=== PATIENT | female | born 1965 | race Caucasian/White ===

== ENCOUNTER 2017-05-15 22:23 | Observation (INO) ==
--- NOTE | 2017-05-15 22:56 | Emergency Department Note ---
Disposition Clinical Impression: Chest pain Qualifiers: Chest pain type: unspecified Qualified Code(s): R07.9 - Chest pain, unspecified Disposition: Admitted As Inpatient Condition: Good Reasons to Return/Additional Instructions: Please call your enroute controller morning to set up appointment. You may also call your primary care physician for checkup. Please return sooner for any new or worsening pain. Referrals: Corina Regan MD [Primary Care Provider] - Forms: ED Satisfaction Letter Time of Disposition: 05:40 Chest Pain HPI - General Chief Complaint: ED Chest Pain Stated Complaint: CP/LIGHTHEADED Time Seen by Provider: 05/15/17 22:55 Source: patient Mode of arrival: ambulatory Limitations: no limitations Vital Signs Reviewed: Yes Nursing Notes Reviewed: Yes - History of Present Illness HPI Narrative: Patient presents to the ED with the chief complaint of chest discomfort and feeling lightheaded. Patient reports that she had a nuclear medicine stress test today. She had that done this afternoon and at around 6 PM this evening she started developing a funny feeling in her chest. She describes it as retrosternal, but higher than the xiphoid. She denies any pain in particular but states this is a pressure like feeling. Never had pain like this before. States that similar to the pain she is having for the past several weeks which prompted the visit to have the stress test. She did have some nausea, no vomiting. No fever or chills. States that she felt kind of lightheaded like she was going to pass out. No change in vision. No shortness of breath above baseline. She does state she feels like she needs to take a deep breath a lot and actually sighs a lot. States that she also felt kind of anxious. Severity scale (1-10): 0 - Related Data Allergies Allergy/AdvReac Type Severity Reaction Status Date / Time No Known Allergies Allergy Verified 05/15/17 22:26 All systems ED: reviewed and negative except as stated. Cardiovascular: Reports: chest pain, dyspnea on exertion, syncope (near) Gastrointestinal: Reports: nausea Neurological: Reports: headache (resolved with motrin ), other (Lightheaded) Chest Pain PMH - Past Medical History Medical history: Reports: no medical history Psychiatric history: Reports: no psych history - Social History Smoking Status: Never smoker Alcohol use: Reports: none Drug use: Reports: none Physical Exam - General Limitations: no limitations General appearance: alert, in no apparent distress - Head Head exam: atraumatic, normocephalic, normal inspection - Eye Eye exam: Present: normal appearance, PERRL, EOMI - ENT ENT exam: normal exam, normal oropharynx, mucous membranes moist - Neck Neck exam: Present: normal inspection, full ROM, trachea midline - Chest Chest inspection: Present: normal inspection, symmetric chest wall rise - Respiratory Respiratory exam: Present: normal lung sounds bilaterally - Cardiovascular Cardiovascular exam: Present: regular rate, normal rhythm, normal heart sounds - Abdominal Exam Abdominal exam: Present: soft, Non-Tender. Absent: tenderness, distention, guarding, rebound, rigidity - Extremities Exam Extremities exam: Present: normal inspection, full ROM. Absent: tenderness, pedal edema - Neurological Exam Neurological exam: Present: alert, oriented X3 - Psychiatric Psychiatric exam: Present: normal affect, normal mood - Skin Skin exam: Present: warm, dry, intact, normal color Course Course Narrative: 52-year-old female presenting with chest pain and feeling lightheaded after stress test today. She looks comfortable. Seems slightly anxious. We will check labs and added on a d-dimer due to her change dyspnea. She is not hypoxic. Slightly tachycardic. Disposition pending - Reevaluation(s) Reevaluation #1: Lab work is back and is unremarkable. EKG shows sinus rhythm, rate 80, OR interval 178, QRS 99, QTC 416, normal axis, no acute ischemic changes. The patient's heart score is 3. She gets 1 point for her age and 2 points for risk factors. I do think she is safe for discharge home at this time. Patient agreeable with plan. Will follow enroute controller in the morning. Reevaluation #2: After discussion with the patient, she felt more comfortable staying for repeat troponin. We will order this 2 hours from initial draw, which would be 4 hours total from symptom onset. We will discharge at that time. Reevaluation #3: patient still concerned over symptoms. Will admit. Is having angina type symptoms and without results from full stress and continued intermittent pain, i think it would be better to admit the patient for r/o Vital Signs Temperature 98 F 05/15/17 22:26 Pulse Rate 80 05/15/17 22:26 Respiratory Rate 16 05/15/17 22:26 Blood Pressure 176/100 05/15/17 22:26 O2 Sat by Pulse Oximetry 96 05/15/17 22:26 Temperature 98 F 05/15/17 22:26 Pulse Rate 80 05/16/17 00:51 Respiratory Rate 20 05/16/17 00:51 Blood Pressure 134/83 05/16/17 00:51 O2 Sat by Pulse Oximetry 94 05/16/17 00:51 Oxygen Delivery Oxygen Delivery Room Air Chest Pain - Medical Records Medical records reviewed: Yes I reviewed the patient's medical records. - Lab Data Lab results reviewed: Yes I reviewed the patient's lab results. Result diagrams: 05/15/17 23:28 05/15/17 23:28 Lab Results 05/15/17 05/15/17 05/15/17 Range/Units 23:28 23:28 23:28 WBC 6.7 (4.3-11.1) K/mcL RBC 4.95 (3.82-4.97) M/mcL Hgb 14.5 (11.5-15.4) g/dL Hct 42.8 (35.3-44.9) % MCV 86.5 (83.0-100.0) fL MCH 29.3 (28.0-33.3) pg MCHC 33.9 (31.6-35.5) g/dL RDW 13.2 (11.5-14.5) % Plt Count 234 (140-400) K/mcL MPV 10.8 (9.4-12.4) fL Immature Gran % 0.3 (0-4) % Seg Neutrophils % 59.1 % Lymphocytes % 32.0 % Monocytes % 6.0 % Eosinophils % 2.1 % Basophils % 0.5 % Neutrophils # 3.9 (1.6-8.9) K/mcL Lymphocytes # 2.1 (0.6-4.6) K/mcL Monocytes # 0.4 (0.0-1.3) K/mcL Eosinophils # 0.1 (0.0-0.6) K/mcL Basophils # 0.0 (0.0-0.2) K/mcL PT 11.3 (9.4-12.1) Seconds INR 1.0 APTT 34.0 (26.0-36.0) Seconds D-Dimer 432 (0-500) ng/mLFEU Sodium (136-145) mEq/L Potassium (3.5-4.5) mEq/L Chloride (98-109) mEq/L Carbon Dioxide (19-29) mEq/L BUN (7-20) mg/dL Creatinine (0.57-1.11) mg/dL Est GFR ( Amer) (> 60) Est GFR (Non-Af Amer) (> 60) BUN/Creatinine Ratio (6-26) Glucose (70-99) mg/dL Calculated Osmolality (280-300) Calcium (8.6-10.8) mg/dL Troponin I (0-0.03) ng/mL B-Natriuretic Peptide 22 (0-100) pg/mL 05/15/17 05/15/17 Range/Units 23:28 23:28 WBC (4.3-11.1) K/mcL RBC (3.82-4.97) M/mcL Hgb (11.5-15.4) g/dL Hct (35.3-44.9) % MCV (83.0-100.0) fL MCH (28.0-33.3) pg MCHC (31.6-35.5) g/dL RDW (11.5-14.5) % Plt Count (140-400) K/mcL MPV (9.4-12.4) fL Immature Gran % (0-4) % Seg Neutrophils % % Lymphocytes % % Monocytes % % Eosinophils % % Basophils % % Neutrophils # (1.6-8.9) K/mcL Lymphocytes # (0.6-4.6) K/mcL Monocytes # (0.0-1.3) K/mcL Eosinophils # (0.0-0.6) K/mcL Basophils # (0.0-0.2) K/mcL PT (9.4-12.1) Seconds INR APTT (26.0-36.0) Seconds D-Dimer (0-500) ng/mLFEU Sodium 138 (136-145) mEq/L Potassium 3.5 (3.5-4.5) mEq/L Chloride 104 (98-109) mEq/L Carbon Dioxide 24 (19-29) mEq/L BUN 24 H (7-20) mg/dL Creatinine 0.82 (0.57-1.11) mg/dL Est GFR ( Amer) > 60 (> 60) Est GFR (Non-Af Amer) > 60 (> 60) BUN/Creatinine Ratio 29 H (6-26) Glucose 129 H (70-99) mg/dL Calculated Osmolality 292 (280-300) Calcium 9.9 (8.6-10.8) mg/dL Troponin I 0.00 (0-0.03) ng/mL B-Natriuretic Peptide (0-100) pg/mL - Radiology Data Radiology results reviewed: Yes I reviewed the patient's radiology results. - EKG Data EKG attestation: Yes I reviewed and interpreted this EKG. EKG results narrative: Sinus rhythm, rate 80, OR interval 178, QRS 99, QTC 416, normal axis, no ischemic changes Heart Score - Score History: Slightly Suspicious EKG: Normal Age: 45-65 Risk Factors: Equal/Greater than 3 risk factor or history of atherosclerotic disease Troponin: Less than normal limit HEART Score Total: 3 Attestation Statement - Attestation Attestation: I examined this patient and my medical decision-making was reviewed with the [employer]/PA/Advanced Practice Nurse/Resident Physician. I agree with the documented findings, disposition and treatment plan as described except to the extent set forth below. in summary 52-year-old female with She was given aspirin. She did have a stress test completed today. Her heart score is 3. Plan to obtain delta troponin discharge home. She has a follow-up with her enroute controller in the morning. Final disposition awaiting results of secondary troponin level.
[2017-05-15 23:41] LABS: Basophils % 0.5 %; Eosinophils # 0.1 K/mcL (0.0-0.6); Eosinophils % 2.1 %; Hematocrit 42.8 % (35.3-44.9); Hemoglobin 14.5 g/dL (11.5-15.4); Immature Granulocytes % 0.3 % (0-4); Lymphocytes # 2.1 K/mcL (0.6-4.6); Mean Corpuscular HGB Conc 33.9 g/dL (31.6-35.5); Mean Corpuscular Hemoglobin 29.3 pg (28.0-33.3); Mean Corpuscular Volume 86.5 fL (83.0-100.0); Mean Platelet Volume 10.8 fL (9.4-12.4); Monocytes # 0.4 K/mcL (0.0-1.3); Neutrophils # 3.9 K/mcL (1.6-8.9); Platelet Count 234 K/mcL (140-400); Red Blood Count 4.95 M/mcL (3.82-4.97); Red Cell Distribution Width 13.2 % (11.5-14.5); Segmented Neutrophils % 59.1 %
[2017-05-15 23:43] LABS: Prothrombin Time 11.3 Seconds (9.4-12.1)
[2017-05-15 23:51] LABS: BUN/Creatinine Ratio 29 (6-26); Blood Urea Nitrogen 24 mg/dL (7-20); Calcium 9.9 mg/dL (8.6-10.8); Carbon Dioxide 24 mEq/L (19-29); Chloride 104 mEq/L (98-109); Glucose 129 mg/dL (70-99); Osmolality,Calculated 292 (280-300); Potassium 3.5 mEq/L (3.5-4.5); Sodium 138 mEq/L (136-145); eGFR For African Americans > 60 (> 60); eGFR For Non-African Americans > 60 (> 60)
[2017-05-16] MEDS ORDERED: Aspirin 325 MG TABLET PO ONE (00:27)
[2017-05-16] MEDS ORDERED: Naloxone 0.4 MG/ML INJ IVP PRN (09:48)
[2017-05-16] MEDS ORDERED: Acetaminophen 325 MG TABLET PO PRN (09:48)
[2017-05-16] MEDS ORDERED: Ondansetron 4 MG/2 ML VIAL IVP PRN (09:48)
--- NOTE | 2017-05-16 11:02 | Internal Med History&Physical ---
Date of Encounter: 05/16/17 Time of Encounter: 09:30 Assessment and Plan (1) Chest pain Current visit: Yes Status: Acute Atypical chest pain/discomfort. EKG and initial labs noted to be normal. Continue telemetry monitoring and cycle troponins. We will order second part of nuclear stress test to be completed to rule out coronary ischemia. Supportive care. Qualifiers: Chest pain type: unspecified Qualified Code(s): R07.9 - Chest pain, unspecified (2) Morbid obesity Current visit: Yes Status: Chronic Internal Medicine - H&P: HPI Chief complaint: Chest discomfort Admitted From: Emergency Dept Plans for Post Hospital Care: Home History of present illness: Ms. Navas is a 52 year old female with no significant past medical history presents with complaints of a funny feeling in her chest. Patient unable to clearly state if it is chest pain but she just does not feel right. She has some mild central chest discomfort, nonradiating, associated with nausea and intermittent dizziness. No palpitations, diaphoresis, syncope, shortness of breath. Patient has been having intermittent episodes of mild chest pain for the last several weeks to months, which she reported to her primary care provider, who scheduled for outpatient stress test. Patient completed the first part of nuclear stress test yesterday after which she had all the above symptoms. Past Med Surg Social Fam HX - Past Medical History Medical history: no medical history Psychiatric history: no psych history - Past Surgical History Surgical History: MONSERRAT/BSO (Unilateral salpingo-oophorectomy) - Social History Smoking Status: Never smoker Smokeless Tobacco Status: No Alcohol use: none Drug use: none Current living situation: Home - Independent Activity Level: Independent ambulation Recent Out of Country Travel Within the Last 8 Weeks: No - Family History Mother Hx Family Cancer: Yes (Breast cancer) Father Hx Family Cancer: Yes (Esophageal cancer) Internal Medicine - H&P: Meds Fluticasone Propionate Nasal [Flonase] 1 spray NS DAILY PRN 05/16/17 [History] Ibuprofen [Advil] 200 - 600 mg PO Q6H PRN 05/16/17 [History] Oracea 1 appl TP DAILY PRN 05/16/17 [History] Tizanidine HCl 4 mg PO HS PRN 05/16/17 [History] Allergies No Known Allergies Allergy (Verified 07/12/17 22:26) All Systems PM: A 10-system review of systems was performed and is negative for pertinent findings except as documented above in the HPI. - Constitutional Constitutional: no chills, no fever(s), no night sweats - EENT Eyes: no change in vision, no discharge, no pain, no photophobia Ears: no ear discharge, no ear pain, no tinnitus Nose, mouth and throat: no dysphagia, no nasal discharge, no neck pain, no sore throat - Cardiovascular Cardiovascular ROS IM: chest pain, lightheadedness - Respiratory Respiratory: no cough, no dyspnea, no wheezing, no excessive phlegm production - Gastrointestinal Gastrointestinal: nausea, no abdominal pain, no diarrhea, no hematemesis, no hematochezia, no melena, no vomiting - Genitourinary Genitourinary: no change in urinary stream, no dysuria, no flank pain, no hematuria - Musculoskeletal Musculoskeletal ROS IM: no numbness, no tingling - Integumentary Integumentary IM: no rash, no unusual bruising - Neurological Neurological ROS: no confusion, no convulsions, no focal weakness, no numbness, no tingling, no tremor(s) - Hematologic/Lymphatic Hematologic/Lymphatic: no easy bruising - Constitutional Vitals: Temp Pulse Resp BP Pulse Ox 98.2 F 82 14 127/82 95 05/16/17 07:21 05/16/17 07:21 05/16/17 07:21 05/16/17 07:21 05/16/17 07:21 General appearance: Present: A&O X 3, morbidly obese, answers questions appropriately - Respiratory Respiratory exam: Present: decreased breath sounds (Due to thick chest wall), CTAB. Absent: accessory muscle use, rales, rhonchi, wheezes - Cardiovascular Cardiovascular exam: Present: RRR, +S1, +S2. Absent: diastolic murmur, gallop, rubs, systolic murmur - GI/Abdominal GI/Abdominal exam: Present: normal bowel sounds, soft, no peritoneal signs. Absent: distended, tenderness - Extremities Exam Extremities exam: Present: full ROM, warm, radial pulses palpable and symetrical. Absent: calf tenderness, cyanotic, pedal edema - Neurological Exam Neurological exam: Present: CN II-XII intact, oriented X3, no focal deficits. Absent: pronater drift, facial droop, speech deficit - Skin Skin exam: Present: dry, intact Internal Med - H&P Results - Labs CBC & Chem 7: 05/15/17 23:28 05/15/17 23:28 Labs: Cardiac Enzymes 05/16/17 Range/Units 10:08 Troponin I 0.00 (0-0.03) ng/mL - EKG Data -: EKG Interpreted by Myself EKG shows normal: sinus rhythm Rate: normal
--- NOTE | 2017-05-16 14:13 | Electrocardiograph Report ---
[place] [id number] Test Date: 2017-05-15 Pat Name: Leticia Navas Department: 102 Room: [facility] Gender: F Customer Service Manager: Justice : 1965 Requested By: Ricardo Bauer Order Number: [id number] Reading MD: Calvin Gibbons Measurements Intervals [place] Rate: 80 P: 31 W[place]: 178 QRS: 27 QRSD: 99 T: 30 QT: 380 QTc: 416 Interpretive Statements SINUS RHYTHM LOW QRS VOLTAGE IN PRECORDIAL LEADS Electronically Signed On 05-16-2017 14:12:04 EDT by Calvin Gibbons
--- NOTE | 2017-05-16 14:56 | Discharge Summary ---
Date of Encounter: 05/16/17 Time of Encounter: 14:54 - Discharge Diagnosis (1) Chest pain Priority: Primary Status: Acute Qualifiers: Chest pain type: unspecified Qualified Code(s): R07.9 - Chest pain, unspecified (2) Morbid obesity Priority: Secondary Status: Chronic - Discharge Medications Home Medications: Fluticasone Propionate Nasal [Flonase] 1 spray NS DAILY PRN 05/16/17 [History] Ibuprofen [Advil] 200 - 600 mg PO Q6H PRN 05/16/17 [History] Oracea 1 appl TP DAILY PRN 05/16/17 [History] Tizanidine HCl 4 mg PO HS PRN 05/16/17 [History] Allergies/Adverse Reactions: Allergies No Known Allergies Allergy (Verified 05/15/17 22:26) Date of admission: 05/16/17 05:52 Primary care physician: Corina Reyes Discharging clinician: Dariela Damon Anticipated date of discharge: 05/16/17 - Patient Status Disposition: Home, Self-Care Condition: Good Functional capacity at discharge: independent ambulation Overall status at discharge: patient is back to baseline - Discharge Instructions Follow Up With: Corina Regan MD [Primary Care Provider] - Additional Instructions: Follow-up with primary care provider in one to 2 weeks - Diet and Activity Activity: resume usual activities as tolerated Diet: advance to your usual diet, low fat, low cholesterol Hospital course: Ms. Navas is a 52 year old female with morbid obesity and no significant past medical history was admitted with intermittent chest pain, that has been going on for the last few weeks. Initial labs, chest x-ray and EKG done in the emergency room showed no acute abnormality. Patient underwent first part of her nuclear stress test as an outpatient yesterday and the next one was due in 3 days. She remained asymptomatic in the hospital and telemetry monitoring remained uneventful. Serial troponins remained negative. Patient underwent second part of her nuclear stress test today and the report is noted to be negative for ischemia or infarct with normal EF. Patient's symptoms are likely related to muscle spasms and she is also noted to be on muscle relaxants at home. She is medically stable for discharge with outpatient follow-up at this time. - Time Spent with Patient Total time spent providing and/or coordinating discharge services: Greater than 30 minutes (32 min) - Constitutional Vitals: Temp Pulse Resp BP Pulse Ox 98.2 F 82 14 127/82 95 05/16/17 07:21 05/16/17 07:21 05/16/17 07:21 05/16/17 07:21 05/16/17 07:21 General appearance: Present: A&O X 3, morbidly obese, answers questions appropriately
[2017-05-16 15:18] VITALS: BP 126/81
== END 2017-05-16 16:52 | disposition home or self-care (01) ==
LOC: 3NENU 22:23 → EMEROO 22:23 → 3NENU 05-16 05:46
PROVIDERS: ADMIT Family Medicine; ATTEND Family Medicine